=== PATIENT | male | born 1995 | race Two or more races ===

== ENCOUNTER 2023-09-18 18:36 | Emergency (ER) | payer SELFPAY ==
[2023-09-18 18:41] VITALS: BP 138/100; PULSE 104; RESP 18; TEMP 37; O2SAT 97; BMI 39.4
--- NOTE | 2023-09-18 18:53 | XR_ITS ---
The [address] [address] Patient Name: WILIAM TIJERINA MRN: [id number] date: 1995 Sex: M Assigned Patient Location: ER Current Patient Location: Accession/Order Number: [id number] Exam Date: 09/18/2023 19:00 Report Date: 09/18/2023 19:53 At the request of: MILY DOYLE Procedure: XR chest 1V EXAM: XR chest 1V HISTORY: cough COMPARISON: None. TECHNIQUE: Chest X-ray AP, 1 view FINDINGS: Support devices: None. Lungs/pleura: No consolidation, effusion, or pneumothorax. Heart and mediastinum: Normal contours. Bones: No acute abnormality identified. XR/XR chest 1V Impression: No radiographic evidence of acute cardiopulmonary process. Electronically authenticated by: CAROL PALOMARES Date: 09/18/2023 19:53
--- NOTE | 2023-09-18 18:58 | ED.URI1 ---
HPI - URI/Sore Throat General Chief Complaint: Upper Respiratory Infection Stated Complaint: Flu Symptoms Time Seen by Provider: 09/18/23 18:45 Source: patient History of Present Illness HPI Narrative: Patient is a 28-year-old male who presents to the emergency department for 4-day history of flulike illness. He reports fevers earlier in the course of his illness, he has had vomiting, diarrhea, body aches, mild cough and congestion and states he feels more short of breath today. He has heard himself wheezing. He has multiple sick contacts at his job. He states he was at work today when he began to feel sweaty and had hot and cold chills and came to the ER. He is speaking easily and not winded at initial interview. Related Data Previous Rx's ?Medication ?Instructions ?Recorded albuterol sulfate 90 mcg/actuation 2 inh inhalation Q4H PRN shortness 09/18/23 aerosol inhaler of breath or wheezing #8.5 grams jfzugbahslmpudh-puxjbmzgxplfygz-SC 10 ml PO Q6H PRN cold symptoms 09/18/23 2 mg-30 mg-10 mg/5 mL oral syrup #200 mL (Bromfed DM) ondansetron 4 mg disintegrating 4 mg PO Q6H PRN nausea and 09/18/23 tablet vomiting #12 tabs Allergies Allergy/AdvReac Type Severity Reaction Status Date / Time No Known Drug Allergies Allergy Verified 09/18/23 18:43 Review of Systems ROS Constitutional Reports: fever and chills Ears, nose, mouth, and throat Reports: nasal congestion; Denies: throat pain Respiratory Reports: shortness of breath, cough and wheezing; Denies: change in phlegm color or coughing up blood Gastrointestinal Reports: nausea, vomiting and diarrhea Musculoskeletal Denies: back pain Integumentary/Breast Denies: rash Neurological Reports: headache Exam Narrative Exam Narrative: Gen.: Awake, alert, in no distress Head: Normocephalic, atraumatic ENT: Moist mucous membranes, Bilateral TMs clear, no pharyngeal erythema, uvula midline. Clear speech Respiratory: No respiratory distress, lungs clear bilaterally, Expiratory wheeze noted in the left upper lobe Cardio: Regular rate and rhythm Extremities: Moves extremities equally Psych: Normal mood and affect Neuro: No focal neuro deficit Skin: Warm, dry, intact Constitutional Vital Signs, click to edit/add: Last Vital Signs Temp 98.6 F 09/18/23 18:41 Pulse 125 H 09/18/23 19:27 Resp 20 09/18/23 19:27 BP 138/100 H 09/18/23 18:41 Pulse Ox 98 09/18/23 19:27 O2 Del Method Room Air 09/18/23 19:27 Course Vital Signs Vital signs: Vital Signs Temperature 98.6 F 09/18/23 18:41 Pulse Rate 104 H 09/18/23 18:41 Respiratory Rate 18 09/18/23 18:41 Blood Pressure 138/100 H 09/18/23 18:41 Pulse Oximetry 97 09/18/23 18:41 Oxygen Delivery Method Room Air 09/18/23 18:41 Temperature 98.6 F 09/18/23 18:41 Pulse Rate 125 H 09/18/23 19:27 Respiratory Rate 20 09/18/23 19:27 Blood Pressure 138/100 H 09/18/23 18:41 Pulse Oximetry 98 09/18/23 19:27 Oxygen Delivery Method Room Air 09/18/23 19:27 MDM - URI/Sore Throat MDM Narrative Medical decision making narrative: ,Positive for influenza A. He was given a breathing treatment prednisone in the ER. Chest x-ray with no evidence of acute cardiopulmonary changes. Patient will be started on cough medicine, albuterol inhaler, Zofran for home. He was educated that he has influenza A and should stay home for the rest of the week, work note provided. Increase fluids. Motrin and Tylenol for fever and bodyaches. Return to the ER if symptoms change or worsen. Medical Records Attestation: I reviewed the patient's medical records. Lab Data Attestation: I reviewed the patient's lab results. Labs: Lab Results 09/18/23 Range/Units 18:44 Influenza Type A Ag Positive A Influenza Type B Ag Negative SARS-CoV-2 Ag (CV2AG) Negative (NEGATIVE) Imaging Data Chest x-ray: Attestation: I have reviewed the pertinent imaging results. Discharge Plan Discharge Stand Alone Forms: Portal Instructions Chief Complaint: Upper Respiratory Infection Clinical Impression: Influenza A Patient Disposition: Home, Self-Care Time of Disposition Decision: 19:28 Condition: Good Prescriptions / Home Meds: New albuterol sulfate 90 mcg/actuation HFA aerosol inhaler 2 inh inhalation Q4H PRN (Reason: shortness of breath or wheezing) Qty: 8.5 0RF pzzpsckkgiqaasw-nitccrybp-VA [Bromfed DM] 2-30-10 mg/5 mL syrup 10 ml PO Q6H PRN (Reason: cold symptoms) Qty: 200 0RF ondansetron 4 mg tablet,disintegrating 4 mg PO Q6H PRN (Reason: nausea and vomiting) Qty: 12 0RF Print Language: Pashto Instructions: Influenza (ED) Referrals: Physician,Non-Staff, MD [Primary Care Provider] - 1 week
[2023-09-18 19:12] LABS: Influenza Virus A Antigen Positive; Influenza Virus B Antigen Negative
[2023-09-18 19:13] LABS: Internal Control Within Normal Limits; SARS-CoV-2 Ag NEGATIVE (NEGATIVE)
[2023-09-18] MEDS: PREDNISONE 20 MG TABLET 60 MG PO (19:15)
[2023-09-18 19:17] VITALS: PULSE 117; RESP 18; O2SAT 98
[2023-09-18] MEDS: ALBUTEROL SULFATE 2.5 MG/3 ML VIAL NEB IH (19:17)
[2023-09-18 19:27] VITALS: PULSE 125; RESP 20; O2SAT 98
[2023-09-18 19:37] VITALS: BP 130/81; PULSE 98; RESP 20; O2SAT 99
== END 2023-09-18 19:37 | disposition home or self-care (01) ==
PROVIDERS: Physician Assistant; Emergency Provider Emergency Medicine
DX: J10.1 Influenza due to other identified influenza virus with other respiratory manifestations (principal); Z20.822 Contact with and (suspected) exposure to COVID-19
CPT/HCPCS: 71045; 87804; 87811; 94640; 99284